=== PATIENT | female | born 1985 | race Caucasian/White ===

== ENCOUNTER 2016-09-11 00:42 | Emergency (ER) | payer OTHER ==
[~2016-09-11] VITALS: Ht 162.6 cm; Wt 70.0 kg
[~2016-09-11 00:42] MED LIST: ALPRAZOLAM0.25 M2 PO; ALPRAZOLAM2 MG PO; BACTRIM,SEPT1 TABLET PO; BENTYL20 MG PO; CATAPRES0.1 MG PO; CHROMAGEN,1 CAPSULE PO; CIPRO500 MG PO; CLONIDINE HCL0.1 MG PO; Colace PO; DEPAKOTE250 MG PO; DEPAKOTE500 MG PO; DILAUDID2 MG PO; DOLOPHINE HCL10 MG PO; INDERAL10 MG PO; LIBRIUM25 MG PO; LUNESTA3 MG PO; MIRALAX17 GM PO; Methadone Oral Solut PO; Motrin PO; NEURONTIN300 MG PO; NOHOMEMEDS; PROMETHAZINE HC25 M1 PO; PYRIDIUM100 MG PO; SEROQUEL200 MG PO; TRAZODONE HCL50 MG PO; XANAX XR3 MG PO; XANAX0.5 MG PO; XANAX2 MG PO; ZOFRAN4 MG PO
[2016-09-11 01:27] LABS: EOSINOPHIL (%) 0.5 % (0-5); EOSINOPHIL COUNT 0.1 K/uL (0-0.3); HEMATOCRIT 39.6 % (36.0-46.0); IMMATURE GRANULOCYTE (%) 0.2 % (0.0-0.7); IMMATURE GRANULOCYTE COUNT 0.2 K/uL; LYMPHOCYTE COUNT 3.9 K/uL (1.0-2.8); MCH 27.1 PG (29.0-34.0); MCHC 34.6 G/DL (30.0-36.0); MCV 78.3 FL (83-99); MONOCYTE (%) 5.6 % (3-12); MONOCYTE COUNT 0.5 K/uL (0-0.8); NEUTROPHIL (%) 53.9 % (45-76); NEUTROPHIL COUNT 5.2 K/uL (1.8-6.4); PLATELET COUNT 222 K/uL (156-360); RBC DIS.WIDTH-CV 13.3 % (11.8-14.6); RED BLOOD COUNT 5.06 M/uL (3.80-5.20); WHITE BLOOD COUNT 9.7 K/uL (4.1-10.2)
[2016-09-11 01:27] LABS: BASE EXCESS -8.3 mEq/L (-3 to +3); BICARBONATE 18.9 mEq/L (22-26); CARBOXY HGB 4.6 % (0-5); METHEMOGLOBIN 1.2 % (0-1.5); PCO2 44 mm Hg (35-45); PO2 76 mm Hg (80-100)
[2016-09-11 01:28] LABS: COMMENTS - BLOOD GASES C+; SITE LR; TOTAL RESP RATE 14 resp/min; pH 7.24 (7.35-7.45)
[2016-09-11 01:38] LABS: CHLORIDE 107 mEq/L (99-109); POTASSIUM 3.3 mEq/L (3.7-5.4); SODIUM 139 mEq/L (136-147)
[2016-09-11 01:40] LABS: GLUCOSE 134 mg/dL (70-99)
[2016-09-11 01:41] LABS: ANION GAP 16 MEQ/L (2-14)
[2016-09-11 01:42] LABS: TOTAL BILIRUBIN 0.2 mg/dL (0.0-1.0)
[2016-09-11 01:43] LABS: SERUM ETHYL ALCOHOL 168 mg/dL
[2016-09-11 01:44] LABS: GFR ESTIMATE (CALCULATED) > 59 mL/min/
[2016-09-11 01:45] LABS: ALKALINE PHOSPHATASE 159 IU/L (3-129)
[2016-09-11 01:46] LABS: UREA NITROGEN (BUN) 8 mg/dL (9-23)
[2016-09-11 01:47] LABS: SALICYLATE < 5.0 MG/DL (15-30)
[2016-09-11 01:53] LABS: QUANTITATIVE HCG < 4.0 MIU/ML
[2016-09-11 02:30] VITALS: BP 99/56
[2016-09-11 03:40] LABS: AMPHETAMINE NEGATIVE (500 ng/mL); BARBITURATES NEGATIVE (200 ng/mL); BENZODIAZEPINES NEGATIVE (150 ng/mL); COCAINE PRESUMPTIVE POSITIVE (150 ng/mL); INTERNAL CONTROLS VALID? YES; METHADONE NEGATIVE (200 ng/mL); METHAMPHETAMINE NEGATIVE (500 ng/mL); OPIATES (MORPHINE) PRESUMPTIVE POSITIVE (100 ng/mL); OXYCODONE NEGATIVE (100 ng/mL); PHENCYCLIDINE NEGATIVE (25 ng/mL); PROPOXYPHENE NEGATIVE (300 ng/mL); THC CANNABINOIDS PRESUMPTIVE POSITIVE (50 ng/mL); TRICYCLIC ANTIDEPRESSANTS NEGATIVE (300 ng/mL)
[2016-09-11 03:41] LABS: ADD MEDTOX COMMENT Y
== END 2016-09-11 03:46 | disposition home or self-care (01) ==
LOC: EME 00:42
PROVIDERS: Emergency Medicine
DX: F10.129 Alcohol abuse with intoxication, unspecified (principal); T51.0X1A Toxic effect of ethanol, accidental (unintentional), initial encounter; R06.81 Apnea, not elsewhere classified; E87.2 Acidosis; R41.82 Altered mental status, unspecified; F41.9 Anxiety disorder, unspecified; B19.20 Unspecified viral hepatitis C without hepatic coma; F31.9 Bipolar disorder, unspecified; R56.9 Unspecified convulsions; F17.200 Nicotine dependence, unspecified, uncomplicated
CPT/HCPCS: 36600; 70450; 71010; 80053; 82140; 82803; 84702; 84999; 85025; 93005; 99281; 99285; G0480; J1630; J2310; J2405; J7030

== ENCOUNTER 2018-01-15 21:34 | Emergency (ER) | payer OTHER ==
[~2018-01-15] VITALS: Ht 157.5 cm; Wt 68.3 kg
[2018-01-15 21:56] LABS: HEMATOCRIT 30.1 % (36.0-46.0); HEMOGLOBIN 10.8 G/DL (11.9-15.5); MCH 31.3 PG (29.0-34.0); MCHC 35.9 G/DL (30.0-36.0); MCV 87.2 FL (83-99); PLATELET COUNT 201 K/uL (156-360); RBC DIS.WIDTH-CV 11.7 % (11.8-14.6); RBC DIS.WIDTH-SD 37.2 % (39-53); RED BLOOD COUNT 3.45 M/uL (3.80-5.20); WHITE BLOOD COUNT 11.1 K/uL (4.1-10.2)
[2018-01-15 22:08] LABS: CHLORIDE 107 mEq/L (99-109); POTASSIUM 3.7 mEq/L (3.7-5.4); SODIUM 136 mEq/L (136-147)
[2018-01-15 22:09] LABS: GLUCOSE 95 mg/dL (70-99)
[2018-01-15 22:13] LABS: CREATININE 0.7 mg/dL (0.6-1.3); GFR ESTIMATE (CALCULATED) > 59 mL/min/
[2018-01-15 22:14] LABS: UREA NITROGEN (BUN) 5 mg/dL (9-23)
[2018-01-15 23:20] LABS: APPEARANCE CLEAR ((CLEAR)); BILIRUBIN NEGATIVE; BLOOD SMALL; COLOR AMBER ((YELLOW)); GLUCOSE (STRIP) NEGATIVE; KETONES NEGATIVE; LEUKOCYTES MODERATE; NITRITE NEGATIVE; PROTEIN (STRIP) 100; SPECIFIC GRAVITY 1.011 (1.000-1.030); UROBILINOGEN 0.2 MG/DL (0.2-1.0)
[2018-01-15 23:29] LABS: BACTERIA 2+ /HPF; EPITHELIAL CELLS 1+ /HPF; HYALINE CASTS 0-5 /LPF; MUCUS TRACE /LPF; UCUL ADDED? YES; WHITE BLOOD CELLS TNTC /HPF (0-5)
[2018-01-16 01:30] LABS: ALBUMIN 3.4 g/dL (3.2-4.8)
[2018-01-16 01:33] LABS: TOTAL PROTEIN 6.9 g/dL (6.4-8.3)
[2018-01-16 01:35] LABS: TOTAL BILIRUBIN 0.3 mg/dL (0.0-1.0)
[2018-01-16 01:36] LABS: ALKALINE PHOSPHATASE 144 IU/L (3-129)
[2018-01-16 01:39] LABS: ALT (GPT) 24 IU/L (3-49); AST (GOT) 24 IU/L (2-34); DIRECT BILIRUBIN 0.2 mg/dL (0.0-0.3)
[2018-01-16] MEDS ORDERED: VENTOLIN HFA18 GM IH (02:10)
[2018-01-16] MEDS ORDERED: AUGMENTIN875 MG PO (02:10)
[2018-01-16] MEDS ORDERED: PREDNISONE10 M1 PO (02:11)
[2018-01-16 02:48] VITALS: BP 120/88
== END 2018-01-16 02:50 | disposition home or self-care (01) ==
LOC: EME 21:34
PROVIDERS: Physician Assistant
DX: O99.513 Diseases of the respiratory system complicating pregnancy, third trimester (principal); J06.9 Acute upper respiratory infection, unspecified; O23.43 Unspecified infection of urinary tract in pregnancy, third trimester; Z3A.33 33 weeks gestation of pregnancy; O99.333 Smoking (tobacco) complicating pregnancy, third trimester; F17.210 Nicotine dependence, cigarettes, uncomplicated; O99.343 Other mental disorders complicating pregnancy, third trimester; F32.9 Major depressive disorder, single episode, unspecified; F41.9 Anxiety disorder, unspecified; O99.323 Drug use complicating pregnancy, third trimester; F11.20 Opioid dependence, uncomplicated; O98.413 Viral hepatitis complicating pregnancy, third trimester; B19.20 Unspecified viral hepatitis C without hepatic coma; Z88.1 Allergy status to other antibiotic agents; Z88.5 Allergy status to narcotic agent; Z86.69 Personal history of other diseases of the nervous system and sense organs
CPT/HCPCS: 71046; 71275; 80048; 80076; 81003; 82570; 84156; 85027; 85379; 87077; 87086; 87186; 93005; 94640; 99281; 99285; J7030

== ENCOUNTER 2018-01-27 12:48 | Outpatient (CLI) | payer OTHER ==
[2018-01-27] VITALS (14 sets, daily range): BP systolic 112–166; BP diastolic 63–91
[~2018-01-27 12:48] MED LIST changes: +AUGMENTIN875 MG PO; +PREDNISONE10 M1 PO; +VENTOLIN HFA18 GM IH
[2018-01-27 13:25] LABS: BASOPHIL (%) 0.2 % (0-1); EOSINOPHIL (%) 0.5 % (0-5); EOSINOPHIL COUNT 0.1 K/uL (0-0.3); HEMATOCRIT 27.8 % (36.0-46.0); HEMOGLOBIN 9.9 G/DL (11.9-15.5); IMMATURE GRANULOCYTE (%) 0.5 % (0.0-0.7); LYMPHOCYTE (%) 20.2 % (15-42); LYMPHOCYTE COUNT 1.8 K/uL (1.0-2.8); MCHC 35.6 G/DL (30.0-36.0); MCV 87.1 FL (83-99); MONOCYTE (%) 3.3 % (3-12); MONOCYTE COUNT 0.3 K/uL (0-0.8); NEUTROPHIL (%) 75.3 % (45-76); NEUTROPHIL COUNT 6.9 K/uL (1.8-6.4); PLATELET COUNT 222 K/uL (156-360); RBC DIS.WIDTH-CV 11.5 % (11.8-14.6); RBC DIS.WIDTH-SD 35.8 % (39-53); RED BLOOD COUNT 3.19 M/uL (3.80-5.20); WHITE BLOOD COUNT 9.1 K/uL (4.1-10.2)
[2018-01-27 13:30] LABS: APPEARANCE SL.HAZY ((CLEAR)); BILIRUBIN NEGATIVE; BLOOD NEGATIVE; COLOR AMBER ((YELLOW)); GLUCOSE (STRIP) NEGATIVE; KETONES NEGATIVE; LEUKOCYTES TRACE; NITRITE NEGATIVE; PROTEIN (STRIP) 100; SPECIFIC GRAVITY 1.011 (1.000-1.030); UROBILINOGEN 0.2 MG/DL (0.2-1.0)
[2018-01-27 13:36] LABS: PTT 25.4 SEC (25-37)
[2018-01-27 13:45] LABS: ALKALINE PHOSPHATASE 168 IU/L (3-129); ALT (GPT) 44 IU/L (3-49); AST (GOT) 54 IU/L (2-34); CHLORIDE 108 MEQ/L (99-109); CREATININE 0.6 MG/DL (0.6-1.3); GFR ESTIMATE (CALCULATED) > 59 mL/min/; GLUCOSE 115 mg/dL (70-99); POTASSIUM 3.3 MEQ/L (3.7-5.4); SODIUM 138 MEQ/L (136-147); TOTAL BILIRUBIN 0.5 MG/DL (0.0-1.0); TOTAL PROTEIN 6.6 G/DL (6.4-8.3); UREA NITROGEN (BUN) 5 mg/dL (9-23); URIC ACID 6.2 mg/dL (3.1-9.2)
[2018-01-27 13:49] LABS: BACTERIA RARE /HPF; CALCIUM OXALATE CRYSTALS 2+ /HPF; EPITHELIAL CELLS 1+ /HPF; HYALINE CASTS 0-5 /LPF; MUCUS TRACE /LPF; RED BLOOD CELLS 0-5 /HPF (0-5); UCUL ADDED? NO; WHITE BLOOD CELLS 0-5 /HPF (0-5)
[2018-01-27 14:00] LABS: AMPHETAMINE NEGATIVE (500 ng/mL); BARBITURATES NEGATIVE (200 ng/mL); BENZODIAZEPINES NEGATIVE (150 ng/mL); BUPRENORPHINE NEGATIVE (10 ng/mL); COCAINE NEGATIVE (150 ng/mL); METHADONE NEGATIVE (200 ng/mL); METHAMPHETAMINE NEGATIVE (500 ng/mL); OPIATES (MORPHINE) NEGATIVE (100 ng/mL); OXYCODONE NEGATIVE (100 ng/mL); PHENCYCLIDINE NEGATIVE (25 ng/mL); PROPOXYPHENE NEGATIVE (300 ng/mL); THC CANNABINOIDS NEGATIVE (50 ng/mL); TRICYCLIC ANTIDEPRESSANTS NEGATIVE (300 ng/mL)
[2018-01-27 14:07] LABS: UR CREATININE CONCENTRATION 126.7 MG/DL
[2018-01-27] MEDS ORDERED: TYLENOL COLD &1 EACH PO (14:55)
[2018-01-27] MEDS ORDERED: MACROBID100 MG PO (14:56)
[2018-01-27] MEDS ORDERED: BUSPAR7.5 MG PO (14:56)
[2018-01-27] MEDS ORDERED: LO-DOSE ASPIRIN81 M1 PO (14:56)
[2018-01-28 03:33] VITALS: BP 144/71
[2018-01-28 06:36] LABS: BASOPHIL (%) 0.1 % (0-1); EOSINOPHIL (%) 0 % (0-5); HEMATOCRIT 27.5 % (36.0-46.0); HEMOGLOBIN 9.7 G/DL (11.9-15.5); LYMPHOCYTE (%) 9.8 % (15-42); LYMPHOCYTE COUNT 1.3 K/uL (1.0-2.8); MCH 30.8 PG (29.0-34.0); MCHC 35.3 G/DL (30.0-36.0); MCV 87.3 FL (83-99); MONOCYTE (%) 2.1 % (3-12); MONOCYTE COUNT 0.3 K/uL (0-0.8); NEUTROPHIL COUNT 11.3 K/uL (1.8-6.4); PLATELET COUNT 243 K/uL (156-360); RBC DIS.WIDTH-CV 11.6 % (11.8-14.6); RBC DIS.WIDTH-SD 35.8 % (39-53); RED BLOOD COUNT 3.15 M/uL (3.80-5.20)
[2018-01-28 06:56] LABS: ALBUMIN 3.1 G/DL (3.2-4.8); ALKALINE PHOSPHATASE 145 IU/L (3-129); ALT (GPT) 44 IU/L (3-49); AST (GOT) 45 IU/L (2-34); CHLORIDE 106 MEQ/L (99-109); CREATININE 0.6 MG/DL (0.6-1.3); GFR ESTIMATE (CALCULATED) > 59 mL/min/; GLUCOSE 135 mg/dL (70-99); SODIUM 135 MEQ/L (136-147); TOTAL BILIRUBIN 0.5 MG/DL (0.0-1.0); TOTAL PROTEIN 6.8 G/DL (6.4-8.3); UREA NITROGEN (BUN) 6 mg/dL (9-23)
[2018-01-28 06:58] LABS: POTASSIUM 4.2 MEQ/L (3.7-5.4)
[2018-01-28 07:24] VITALS: BP 138/82
[2018-01-28 10:09] LABS: HEMOGLOBIN A1c (GLYCOHEMOGLOB) 5.1 % (Below 5.7)
[2018-01-28 10:25] VITALS: BP 127/58
[2018-01-28 14:10] VITALS: BP 139/82
[2018-01-28 18:14] LABS: UR CREATININE CONCENTRATION 200.4 MG/DL
[2018-01-28 18:20] VITALS: BP 134/73
== END 2018-01-28 18:50 | disposition home or self-care (01) ==
LOC: LDRP-OP 12:48 → 2WEST 12:50 → LDRP-OP 04-18 12:12
PROVIDERS: Advanced Practice Midwife; Obstetrics & Gynecology
DX: O14.03 Mild to moderate pre-eclampsia, third trimester (principal); O36.5930 Maternal care for other known or suspected poor fetal growth, third trimester, not applicable or unspecified; O98.413 Viral hepatitis complicating pregnancy, third trimester; B18.2 Chronic viral hepatitis C; O99.283 Endocrine, nutritional and metabolic diseases complicating pregnancy, third trimester; E87.6 Hypokalemia; O23.43 Unspecified infection of urinary tract in pregnancy, third trimester; O34.219 Maternal care for unspecified type scar from previous cesarean delivery; O99.343 Other mental disorders complicating pregnancy, third trimester; F32.9 Major depressive disorder, single episode, unspecified; Z3A.35 35 weeks gestation of pregnancy
CPT/HCPCS: 59025; 76805; 76818; 80053; 81003; 81050; 82570; 83036; 84156; 84550; 85025; 85610; 85730; 87086; G0378; J0702; J7120

== ENCOUNTER 2018-02-12 06:08 | Inpatient (IN) | payer OTHER ==
[~2018-02-12] VITALS: Ht 157.5 cm; Wt 66.2 kg
[2018-02-12] VITALS (9 sets, daily range): BP systolic 111–142; BP diastolic 59–93
[~2018-02-12 06:08] MED LIST changes: +BUSPAR7.5 MG PO; +LO-DOSE ASPIRIN81 M1 PO; +MACROBID100 MG PO; +MELATONIN5 M1 PO; +PRENATAL TABLE1 EAC3 PO; +TYLENOL COLD &1 EACH PO
[2018-02-12 07:15] LABS: BASOPHIL (%) 0.5 % (0-1); BASOPHIL COUNT 0.1 K/uL (0-0.1); EOSINOPHIL (%) 1.3 % (0-5); EOSINOPHIL COUNT 0.2 K/uL (0-0.3); HEMATOCRIT 30.4 % (36.0-46.0); HEMOGLOBIN 10.4 G/DL (11.9-15.5); IMMATURE GRANULOCYTE (%) 0.4 % (0.0-0.7); LYMPHOCYTE (%) 31.5 % (15-42); LYMPHOCYTE COUNT 3.6 K/uL (1.0-2.8); MCH 30.5 PG (29.0-34.0); MCHC 34.2 G/DL (30.0-36.0); MCV 89.1 FL (83-99); MONOCYTE (%) 4.8 % (3-12); MONOCYTE COUNT 0.6 K/uL (0-0.8); NEUTROPHIL (%) 61.5 % (45-76); NEUTROPHIL COUNT 7.1 K/uL (1.8-6.4); PLATELET COUNT 200 K/uL (156-360); RBC DIS.WIDTH-CV 13.1 % (11.8-14.6); RBC DIS.WIDTH-SD 42.1 % (39-53); RED BLOOD COUNT 3.41 M/uL (3.80-5.20); WHITE BLOOD COUNT 11.5 K/uL (4.1-10.2)
[2018-02-12 07:52] LABS: AMPHETAMINE NEGATIVE (500 ng/mL); BARBITURATES NEGATIVE (200 ng/mL); BENZODIAZEPINES NEGATIVE (150 ng/mL); BUPRENORPHINE NEGATIVE (10 ng/mL); COCAINE NEGATIVE (150 ng/mL); METHADONE NEGATIVE (200 ng/mL); METHAMPHETAMINE NEGATIVE (500 ng/mL); OPIATES (MORPHINE) NEGATIVE (100 ng/mL); OXYCODONE NEGATIVE (100 ng/mL); PHENCYCLIDINE NEGATIVE (25 ng/mL); PROPOXYPHENE NEGATIVE (300 ng/mL); THC CANNABINOIDS NEGATIVE (50 ng/mL); TRICYCLIC ANTIDEPRESSANTS NEGATIVE (300 ng/mL)
[2018-02-13 02:17] VITALS: BP 119/69
[2018-02-13 06:45] VITALS: BP 134/65
[2018-02-13 06:51] LABS: HEMATOCRIT 22.6 % (36.0-46.0); MCH 31.7 PG (29.0-34.0); MCHC 35.4 G/DL (30.0-36.0); MCV 89.7 FL (83-99); RBC DIS.WIDTH-CV 13.1 % (11.8-14.6); RBC DIS.WIDTH-SD 42.3 % (39-53); WHITE BLOOD COUNT 14.9 K/uL (4.1-10.2)
[2018-02-13 06:59] LABS: RED BLOOD COUNT 2.52 M/uL (3.80-5.20)
[2018-02-13 07:36] LABS: BASOPHIL (%) 0.1 % (0-1); EOSINOPHIL (%) 0 % (0-5); IMMATURE GRANULOCYTE (%) 0.7 % (0.0-0.7); LYMPHOCYTE (%) 16.3 % (15-42); LYMPHOCYTE COUNT 2.4 K/uL (1.0-2.8); MONOCYTE (%) 5.8 % (3-12); MONOCYTE COUNT 0.9 K/uL (0-0.8); NEUTROPHIL (%) 77.1 % (45-76); NEUTROPHIL COUNT 11.5 K/uL (1.8-6.4); PLAT.SUFFICIENCY DECREASED
[2018-02-13 07:40] LABS: PLATELET COUNT 134 K/uL (156-360)
[2018-02-13 11:15] VITALS: BP 141/77
[2018-02-13 14:55] VITALS: BP 121/67
[2018-02-13 19:37] VITALS: BP 121/68
[2018-02-13 23:18] VITALS: BP 120/61
[2018-02-14 04:07] VITALS: BP 132/64
[2018-02-15 07:24] VITALS: BP 118/57
[2018-02-15] MEDS ORDERED: ENDOCET 5-3251 EACH PO (08:26)
[2018-02-15] MEDS ORDERED: IBUPROFEN800 MG PO (08:26)
[2018-02-15] MEDS ORDERED: FERROUS SULFAT325 MG PO (08:26)
== END 2018-02-15 15:51 | disposition home or self-care (01) | DRG 765 ==
LOC: 2WEST 06:08 → 2SOUTH 11:33 → 2WEST 02-15 15:51
PROVIDERS: Obstetrics & Gynecology
DX: O98.42 Viral hepatitis complicating childbirth (principal); B19.20 Unspecified viral hepatitis C without hepatic coma; O99.340 Other mental disorders complicating pregnancy, unspecified trimester; O34.211 Maternal care for low transverse scar from previous cesarean delivery; F17.200 Nicotine dependence, unspecified, uncomplicated; O14.04 Mild to moderate pre-eclampsia, complicating childbirth; O69.81X0 Labor and delivery complicated by cord around neck, without compression, not applicable or unspecified; O36.5930 Maternal care for other known or suspected poor fetal growth, third trimester, not applicable or unspecified; O99.02 Anemia complicating childbirth; D62 Acute posthemorrhagic anemia; O99.334 Smoking (tobacco) complicating childbirth; D50.9 Iron deficiency anemia, unspecified; Z37.0 Single live birth; Z3A.37 37 weeks gestation of pregnancy; Z30.2 Encounter for sterilization; K59.00 Constipation, unspecified; N83.8 Other noninflammatory disorders of ovary, fallopian tube and broad ligament
CPT/HCPCS: 85025; 85384; 86850; 86900; 86901; 86920; 87641; 88302; 88304; 88307; J0690; J1100; J1200; J2274; J2405; J3010; J7120